=== PATIENT | female | born 1965 | race Caucasian/White ===

== ENCOUNTER 2024-04-02 10:52 | Day surgery (SDC) | payer OTHER ==
[2024-03-27 11:42] VITALS: BMI 29.0
[2024-04-02] MEDS ORDERED: PROPOFOL 40 ML ONE (11:09)
[2024-04-02 12:48] VITALS: PULSE 65; RESP 16; TEMP 97.3
[2024-04-02 13:06] VITALS: BP 124/64
== END 2024-04-02 13:47 | disposition home or self-care (01) ==
LOC: FASU-ENDO 10:52
PROVIDERS: ATTEND Internal Medicine Gastroenterology
PROC: 0DBP8ZX Excision of Rectum, Via Natural or Artificial Opening Endoscopic, Diagnostic (ICD-10-PCS; 2024-04-02)
PROC: 0DBH8ZX Excision of Cecum, Via Natural or Artificial Opening Endoscopic, Diagnostic (ICD-10-PCS; 2024-04-02)
PROC: 0DBK8ZX Excision of Ascending Colon, Via Natural or Artificial Opening Endoscopic, Diagnostic (ICD-10-PCS; principal; 2024-04-02 12:19)
DX: Z12.11 Encounter for screening for malignant neoplasm of colon (principal); K52.9 Noninfective gastroenteritis and colitis, unspecified; K62.89 Other specified diseases of anus and rectum; K64.1 Second degree hemorrhoids; K64.8 Other hemorrhoids; K57.30 Diverticulosis of large intestine without perforation or abscess without bleeding
CPT/HCPCS: 88305-TC